=== PATIENT | female | born 1940 | race Caucasian/White ===

== ENCOUNTER → 2021-03-22 | Outpatient (CLI) | payer MEDICARE, OTHER ==
[2014-07-28 00:08] VITALS: BP 185/86
--- NOTE | 2021-03-22 09:01 | RAD ---
CT chest without contrast dated 03/22/2021. COMPARISON: 04/07/2010. INDICATION: Idiopathic pulmonary fibrosis. TECHNIQUE: Contiguous axial imaging the chest performed without the administration of intravenous contrast. One or more of the following individualized dose reduction techniques were utilized for this examinat ion: 1. Automated exposure control 2. Adjustment of the mA and/or kV according to patient size 3. Use of iterative reconstruction technique. FINDINGS: Heart size is mildly enlarged. No pericardial effusion. Coronary artery calcifications. There are mil dly enlarged right paratracheal, pretracheal and left paratracheal lymph nodes measuring up to 1.4 cm short axis, mildly increased from prior study. There are also borderline enlarged bilateral hilar ly mph nodes, unchanged. No axillary or supraclavicular lymphadenopathy. There is a calcified nodule at the right lobe thyroid gland that extends substernal, measuring about 2.3 cm, unchanged. Central airways are patent. Mild diffuse bronchial wall thickening and bronchiectasis. There are irre gular linear peripheral shadows that are basilar predominant, mildly increased from prior study. Invo lvement of the right middle lobe, lingula and bilateral upper lobes, also somewhat increased. No cons olidation or pleural effusion. There are some subpleural cystic changes at both lung bases, progresse d. Images of the upper abdomen are unremarkable. Gallbladder surgically absent. No significant bony abno rmality. Multilevel spondylosis. IMPRESSION: 1. Moderate basilar predominant interstitial fibrosis, progressed from the 2011 exam, this most likel y represents usual interstitial pneumonia, although collagen vascular disease or chronic drug toxicit y are other considerations. 2. Mild bronchiectasis with early honeycomb cyst formation. 3. Mild mediastinal and hilar lymphadenopathy, somewhat increased from prior study, nonspecific. This could be related to interstitial lung disease. 4. Partially calcified right thyroid nodule, unchanged. 5. Coronary artery calcifications. Electronically signed by: Miguel Mayer MD (03/22/2021 8:59 AM) [facility]
== END ==
LOC: CT 08:17
PROVIDERS: ATTEND Internal Medicine Pulmonary Disease
DX: J84.10 Pulmonary fibrosis, unspecified (principal); I51.7 Cardiomegaly; J47.9 Bronchiectasis, uncomplicated; I25.10 Atherosclerotic heart disease of native coronary artery without angina pectoris; E04.1 Nontoxic single thyroid nodule; R59.0 Localized enlarged lymph nodes; R91.8 Other nonspecific abnormal finding of lung field; M47.819 Spondylosis without myelopathy or radiculopathy, site unspecified; Z90.49 Acquired absence of other specified parts of digestive tract
CPT/HCPCS: 71250

== ENCOUNTER → 2021-03-22 | Outpatient (CLI) | payer MEDICARE, OTHER ==
[2014-07-28 00:08] VITALS: BP 185/86
--- NOTE | 2021-03-22 12:45 | CARD ---
MR#: [id number] Date of Study: 03/22/2021 Ordering Physician: STAFF NON, Referring Physician: STAFF GERBER, Tech: Dia Malagon [facility] APPROVED REPORT EXAM: Two-dimensional and M-mode echocardiogram with Doppler and color Doppler. Other Information Quality : AverageHR: 81bpm Technically limited study due to body habitus. INDICATION Dyspnea RISK FACTORS Hypertension 2D DIMENSIONS Left Atrium(2D)3.6 (1.6-4.0cm)IVSd1.1 (0.7-1.1cm) Aortic Root(2D)3.4 (2.0-3.7cm)LVDd5.4 (3.9-5.9cm) LVOT Diameter2.1 (1.8-2.4cm)PWd1.1 (0.7-1.1cm) LVDs3.3 (2.5-4.0cm)FS (%) 39.3 % SV98.0 ml Aortic Valve AoV Peak Atif.156.7cm/sAoV VTI33.4cm AO Peak GR.9.8mmHgLVOT Peak Atif.75.5cm/s LVOT VTI 18.78cmAO Mean GR.5mmHg ROLA (VMAX)1.44bz1SWW (VTI)1.95cm2 AI P 1/2 [id number] Mitral Valve MV E Zuekhrca75.3cm/sMV DECEL [id number] MV A Esreyilz348.5cm/sMV E Mean Gr.2mmHg MV [id number]/A Ratio0.5 MVA (PHT)3.29cm2 TDI E/Lateral E'8.6E/Medial E'9.8 Pulmonary Valve PV Peak Lgkjttte61.1cm/sPV Peak Grad.3mmHg Tricuspid Valve TR P. Thhhpupo969pt/sRAP [id number] TR Peak Gr.85coWqOQOO95ljHj Pulmonary Vein S1 Kgzpsfli89.2cm/sD2 Mzgijbyb01.2cm/s PVa [id number] LEFT VENTRICLE The left ventricle is normal size. There is borderline to mild concentric left ventricular hypertroph y. The left ventricular systolic function is normal and the ejection fraction is within normal range. The Ejection Fraction is 50-55%. There is normal LV segmental wall motion. Transmitral Doppler flow pattern is Grade I-abnormal relaxation pattern. RIGHT VENTRICLE The right ventricle is normal size. There is normal right ventricular wall thickness. The right ventr icular systolic function is normal. ATRIA The left atrium size is normal. The right atrium size is normal. The interatrial septum is intact wit h no evidence for an atrial septal defect or patent foramen ovale as noted on 2-D or Doppler imaging. AORTIC VALVE The aortic valve is normal in structure and function. Doppler and Color Flow revealed trace to mild a ortic regurgitation. There is no significant aortic valvular stenosis. Calculated aortic valve area i s 2.01 cm2 with maximum pressure gradient of 11 mmHg and mean pressure gradient of 6 mmHg. MITRAL VALVE The mitral valve is normal in structure and function. There is no evidence of mitral valve prolapse. There is no mitral valve stenosis. Doppler and Color-flow revealed mild mitral regurgitation. TRICUSPID VALVE The tricuspid valve is normal in structure and function. Doppler and Color Flow revealed trace to mil d tricuspid regurgitation with an estimated PAP of 38 mmHg. There is no tricuspid valve stenosis. PULMONIC VALVE The pulmonic valve is not well visualized. Doppler and Color Flow revealed no pulmonic valvular regur gitation. GREAT VESSELS The aortic root is normal in size. The ascending aorta is normal in size. The IVC is dilated. PERICARDIAL EFFUSION There is no evidence of significant pericardial effusion. Critical Notification Critical Value: No <Conclusion> The left ventricle is normal size. The left ventricular systolic function is normal and the ejection fraction is within normal range. The Ejection Fraction is 50-55%. There is borderline to mild concentric left ventricular hypertrophy. Doppler and Color Flow revealed trace to mild aortic regurgitation. There is no significant aortic valvular stenosis. Calculated aortic valve area is 2.01 cm2 with maximum pressure gradient of 11 mmHg and mean pressure gradient of 6 mmHg. Doppler and Color-flow revealed mild mitral regurgitation. Doppler and Color Flow revealed trace to mild tricuspid regurgitation with an estimated PAP of 38 mmH g. Signed by : Paul Heath MD Electronically Approved : 03/22/2021 12:45:06
== END ==
LOC: ECHO 08:16
PROVIDERS: ATTEND Internal Medicine Pulmonary Disease
DX: I08.3 Combined rheumatic disorders of mitral, aortic and tricuspid valves (principal); R06.00 Dyspnea, unspecified
CPT/HCPCS: 93306; C8929